=== PATIENT | female | born 1975 | race Two or more races ===

== ENCOUNTER 2018-04-14 05:55 | Day surgery (SDC) | payer OTHER ==
[2018-04-14] MEDS ORDERED: NEXIUM 24HR20 MG PO (08:52)
== END 2018-04-14 11:15 | disposition home or self-care (01) ==
LOC: AMB-ENDOS 05:55
DX: D13.1 Benign neoplasm of stomach (principal)

== ENCOUNTER → 2018-11-19 | Outpatient (CLI) | payer OTHER ==
[~2018-11-19] MED LIST: NEXIUM 24HR20 MG PO
== END | disposition home or self-care (01) ==
LOC: RAD 08:43 → MAMO-SONO 08:45
DX: R10.30 Lower abdominal pain, unspecified (principal); I10 Essential (primary) hypertension; R10.31 Right lower quadrant pain; E66.01 Morbid (severe) obesity due to excess calories

== ENCOUNTER → 2018-12-09 11:03 | Outpatient (CLI) | payer OTHER | END | disposition home or self-care (01) | LOC: NUCLEAR 11:03 | DX: R00.0 Tachycardia, unspecified (principal); E66.01 Morbid (severe) obesity due to excess calories ==